=== PATIENT | female | born 1985 ===

== ENCOUNTER 2017-04-24 10:52 | Emergency (ER) | payer OTHER ==
[2017-04-24 11:23] VITALS: TEMP 98.4
[2017-04-24 12:03] LABS: HCG,QUALITATIVE URINE NEGATIVE (NEGATIVE)
[2017-04-24 12:08] LABS: SQUAMOUS EPITHIAL 2 /hpf (0-5); URINE BACTERIA RARE (<OCC); URINE BILIRUBIN NEGATIVE (NEGATIVE); URINE BLOOD NEGATIVE (NEGATIVE); URINE CLARITY Clear (Clear); URINE COLOR Yellow (YELLOW); URINE GLUCOSE (UA) NORMAL (Normal); URINE LEUKOCYTE ESTERASE NEG Leu/uL (Negative); URINE NITRATE NEGATIVE (NEGATIVE); URINE PROTEIN NEGATIVE (NEGATIVE); URINE UROBILINOGEN NORMAL mg/dL (0.2-1.0)
--- NOTE | 2017-04-24 12:48 | C.PDOC ---
History Of Present Illness 31 year old female, with PMHx of left ovarian cyst, presents to ED for evaluation of intermittent left groin pain/discomfort for the past 6 months. Notes that she was taking control pills as tx for ovarian cyst, and had discontinued use several months ago. Otherwise, denies fever, chills, abd. pain , n/v/d, back pain, dysuria, or hematuria. Time Seen by Provider: 04/24/17 11:37 Chief Complaint (Nursing): Abdominal Pain History Per: Patient History/Exam Limitations: no limitations Onset/Duration Of Symptoms: Days, Intermittent Episodes Current Symptoms Are (Timing): Still Present Quality Of Discomfort: "Pain" Associated Symptoms: denies: Loss Of Appetite, Back Pain, Chest Pain, Constipation, Urinary Symptoms Exacerbating Factors: None Alleviating Factors: None Recent travel outside of the [place]: No Additional History Per: Patient Abnormal Vaginal Bleeding: No Past Medical History Reviewed: Historical Data, Nursing Documentation, Vital Signs Vital Signs: Last Vital Signs Temp 98.4 F 04/24/17 15:11 Pulse 88 04/24/17 15:11 Resp 16 04/24/17 15:11 BP 134/74 04/24/17 15:11 Pulse Ox 96 04/24/17 15:11 Family History: States: Unknown Family Hx - Social History Hx Alcohol Use: Yes Hx Substance Use: No - Immunization History Hx Tetanus Toxoid Vaccination: No Hx Influenza Vaccination: No Hx Pneumococcal Vaccination: No Review Of Systems Except As Marked, All Systems Reviewed And Found Negative. Constitutional: Negative for: Fever, Chills Gastrointestinal: Negative for: Nausea, Vomiting, Diarrhea, Constipation Genitourinary: Positive for: Pelvic Pain (left groin). Negative for: Dysuria, Frequency, Hematuria, Vaginal Discharge Musculoskeletal: Negative for: Back Pain Neurological: Negative for: Headache, Dizziness Physical Exam - Physical Exam Appears: Non-toxic, No Acute Distress Skin: Normal Color, Warm, Dry Head: Normacephalic Eye(s): bilateral: PERRL Nose: No Discharge Oral Mucosa: Moist Throat: No Drooling Neck: Trachea Midline, Supple Cardiovascular: Rhythm Regular, No Murmur Respiratory: No Accessory Muscle Use, No Rales, No Rhonchi, No Wheezing Gastrointestinal/Abdominal: Soft, No Tenderness, No Distention, No Guarding, No Rebound Back: No CVA Tenderness Pelvic: Other (mild left groin tenderness) Extremity: Normal ROM, No Pedal Edema, No Deformity Neurological/Psych: Oriented x3, Normal Speech ED Course And Treatment - Laboratory Results Urine POC: Negative O2 Sat by Pulse Oximetry: 98 (RA) Pulse Ox Interpretation: Normal - CT Scan/US TRANSVAGINAL Other Rad Studies (CT/US): Interpreted By Me, Radiology Report Reviewed CT/US Interpretation: IMPRESSION: Unremarkable pelvic ultrasound as above. Progress Note: UA, transvaginal ultrasound ordered and reviewed. On re-eval, pt is afebrile, hemodynamicaly stable. Non-toxic. Ambulatory in ED with stable gait. Afebrile, hemodynamicaly stable. Non-toxic. Abd: benign. back: (-) CVA tenderness. UA results review and appears normal. Preg (-). Transvaginal US- normal study, prelim exam. Pt advised. ref. to f/u with [facility] in2 -3 days for re-eavl. Disposition Counseled Patient/Family Regarding: Studies Performed, Diagnosis, Need For Followup - Disposition [facility] Disposition: HOME/ ROUTINE Disposition Time: 13:30 Condition: STABLE Additional Instructions: FOLLOW UP WITH [facility] IN 2-3 DAYS FOR RE-EVALUATION AND FURTHER TREATMENT NEED RETURN TO ED IF ANY WORSENING OR NEW CHANGES. Prescriptions: Ibuprofen [Motrin Tab] 600 mg PO Q6 #20 tab Instructions: Groin Pain (ED) Forms: [employer] [facility] (Latvian) - Clinical Impression Clinical Impression: Groin pain - PA / [employer] / Resident Statement MD/DO has reviewed & agrees with the documentation as recorded. - Scribe Statement The provider has reviewed the documentation as recorded by the Laurent Quinones All medical record entries made by the Laurent were at my direction and personally dictated by me. I have reviewed the chart and agree that the record accurately reflects my personal performance of the history, physical exam, medical decision making, and the department course for this patient. I have also personally directed, reviewed, and agree with the discharge instructions and disposition.
--- NOTE | 2017-04-24 14:26 | US ---
HISTORY: Left groin pain COMPARISON: None available TECHNIQUE: Real-time transabdominal pelvic ultrasound was performed. In addition a transvaginal pelvic ultrasound was necessary to better depict pelvic anatomy. FINDINGS: UTERUS: Measures 12.3 x 5.5 x 6.4 cm. Anteverted. ENDOMETRIUM: Measures 1.2 cm in diameter. CERVIX: No cervical abnormality identified. RIGHT OVARY: Measures 3.3 x 2.4 x 3.5 cm. Blood flow is demonstrated. LEFT OVARY: Measures 3.7 x 2.2 x 3.7 cm. Blood flow is demonstrated. FREE FLUID: No significant free fluid noted. OTHER FINDINGS: Limited submitted images were obtained in the region of interest (left groin) without discrete abnormality appreciated. IMPRESSION: Unremarkable pelvic ultrasound as above.
[2017-04-24 15:12] VITALS: BP 134/74; PULSE 88; RESP 16
[2017-04-24 17:53] VITALS: O2SAT 98
== END 2017-04-24 15:12 | disposition home or self-care (01) ==
LOC: C.ER 10:52
DX: R10.32 Left lower quadrant pain (principal)